=== PATIENT | male | born 1965 | race African-American/Black ===

== ENCOUNTER 2018-04-01 07:14 | Emergency (ER) | payer BC, OTHER ==
[~2018-04-01] VITALS: Ht 177.8 cm; Wt 90.0 kg
[~2018-04-01 07:14] MED LIST: LOSA25TA3
[2018-04-01 07:19] VITALS: BP 0/0
[2018-04-01] MEDS ORDERED: SODIUM BICARBONATE 7.5% 0.9 MEQ/ML 50ML SYR IV ONE (12:20)
[2018-04-01] MEDS ORDERED: MAGNESIUM SULFATE 4G IN WATER 100ML PREMIX IV ONE (12:20)
[2018-04-01] MEDS ORDERED: EPINEPHRINE 0.1MG/ML (1:10,000) 10ML SYR ONE (12:20)
[2018-04-01] MEDS ORDERED: ATROPINE SULFATE 0.1MG/ML 10ML DISP.SYRIN ONE (12:20)
== END 2018-04-01 09:30 | disposition expired ==
LOC: ER 07:35
DX: I46.9 Cardiac arrest, cause unspecified (principal); I10 Essential (primary) hypertension
CPT/HCPCS: 31500; 92950; 99285; J0461; J3475; J3490